=== PATIENT | male | born 1995 | race Caucasian/White ===

== ENCOUNTER 2016-10-17 12:53 | Emergency (ER) | payer OTHER ==
[2016-10-17 13:00] VITALS: BP 155/88; PULSE 89; RESP 18; TEMP 97.7; O2SAT 98
--- NOTE | 2016-10-17 13:16 | EDPHY ---
H & P Time Seen by Provider: 10/17/16 13:14 HPI/ROS: CHIEF COMPLAINT: Anxiety HISTORY OF PRESENT ILLNESS: The patient is a 21 year old male with history of depression and anxiety who presents with worsening anxiety. 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 Since starting these medications, the patient has not wanted to go outside, he has not been very social, and his anxiety has been worsening. He is unable to see his psychiatrist until Saturday, 2 days from now. The patient denies any recent cold-like symptoms. Further history obtained from father, the patient was living in [place] and began abusing pain medications. He went to rehab in [place] for substance abuse. The patient was diagnosed with bipolar disorder while there. He recently returned to [place] and is seeing a psychiatrist. He is scheduled to go to an OCD consultation next week. REVIEW OF SYSTEMS: A comprehensive 10 point review of systems is otherwise negative aside from elements mentioned in the history of present illness. Past Medical/Surgical History: Anxiety, ADHD, Depression Social History: Currently taking online classes. Smoking Status: Never smoked Physical Exam: General Appearance: Alert, pleasant Eyes: Pupils equal and round, no conjunctival pallor or injection ENT, Mouth: Mucous membranes moist Neck: Normal inspection Respiratory: Lungs are clear to auscultation Cardiovascular: Regular rate and rhythm Gastrointestinal: Abdomen is soft and non-tender Neurological: A&O, nonfocal, normal gait Skin: Warm and dry, no rash Extremities: Nontender, no pedal edema Psychiatric: Anxious and pacing. Mood normal. Constitutional: Initial Vital Signs Temperature (C) 36.5 C 10/17/16 12:58 Heart Rate 89 10/17/16 12:58 Respiratory Rate 18 10/17/16 12:58 Blood Pressure 155/88 H 10/17/16 12:58 O2 Sat (%) 98 10/17/16 12:58 Allergies/Adverse Reactions: No Known Allergies Allergy (Unverified 10/17/16 13:55) Home Medications: Medication Instructions Recorded Hydroxyzine HCl 10/17/16 LAMOTRIGINE 10/17/16 LORazepam [Ativan (RX)] 1 - 2 tab PO Q12 PRN #10 tab 10/17/16 Olanzapine 10/17/16 traZODone 10/17/16 Medical Decision Making ED Course/Re-evaluation: The patient received 1mg Ativan in the ED. Feels better. I discussed effects of this medication. Patient and his Father understand and agree with the plan to go home with some Ativan until the see his psychiatrist. Father will dispense medication to pt. - Data Points Medications Given: Discontinued Medications Lorazepam (Ativan) 1 mg PO EDNOW ONE Stop: 10/17/16 14:21 Last Admin: 10/17/16 13:45 Dose: 1 mg Departure - Departure Disposition: Home, Routine, Self-Care Clinical Impression: Anxiety Condition: Good Instructions: Anxiety (ED) Additional Instructions: Please followup with your psychiatrist as scheduled on Saturday and Saturday. Take 1/2 to 2 tablets of Ativan every 12 hours as needed for anxiety. Return to the emergency department with new or worsening symptoms. Referrals: Douglas Trevino DO [Primary Care Provider] - As per Instructions Prescriptions: LORazepam [Ativan (RX)] 1 - 2 tab PO Q12 PRN #10 tab PRN Reason: Anxiety Report Scribed for: Ann Marie Navarro Report Scribed by: Nanette Wallace Date of Report: 10/17/16 Time of Report: 13:16 Physician Review and Approval Statement: 10/17/16 13:16 Portions of this note were transcribed by a medical records administrator. I personally performed the history, physical exam, and medical decision-making; and confirmed the accuracy of the information in the transcribed note.
[2016-10-17] MEDS ORDERED: LORazepam 1 MG TAB ONE (13:24)
[2016-10-17] MEDS ORDERED: LORazepam 1 MG TAB PO ONE (14:20)
== END 2016-10-17 14:17 | disposition home or self-care (01) ==
DX: F41.9 Anxiety disorder, unspecified (principal)